=== PATIENT | male | born 1965 | race Caucasian/White ===

== ENCOUNTER → 2023-06-28 07:28 | Outpatient (REF) | payer OTHER, SELFPAY | LOC: EMG 07:28 | PROVIDERS: ATTENDING PHYSICIAN Psychiatry & Neurology Neurology; FAMILY PHYSICIAN Physician Assistant Medical | DX: R20.0 Anesthesia of skin (principal) | CPT/HCPCS: 95886; 95913 ==

== ENCOUNTER 2024-03-10 12:53 | Emergency (ER) | payer OTHER, SELFPAY ==
[2024-03-10 12:58] VITALS: BP 124/76
--- NOTE | 2024-03-10 14:32 | ED.GENMED ---
History of Present Illness
General
Chief Complaint: Back Pain
Time Seen by Provider: 03/10/24 14:30
History of Present Illness
History of Present Illness:
TIME OF INITIAL ENCOUNTER: 2:35 PM
HPI: The patient has has about 4 weeks of low back pain that starts in the left buttock region and radiates down the left lower extremity. He feels that he has sciatica. He was seen at an urgent care a few days ago and was placed on Robaxin. This
has not helped at all. He had a nerve ablation in the past and had epidural injections but never had any surgery. He has not had any fevers, he has no history of cancer, no history of IV drug abuse, no 'back pain red flags'. Due to the pain, he
has trouble walking and standing up. He has no bowel or bladder incontinence or tension.
EXAM:
GENERAL: Well appearing but in mild distress
HEENT: Moist oral mucosa
NEUROLOGIC: Excellent strength all extremities, no obvious coordination deficits, he has excellent strength in an L5 and S1 distribution to the left lower extremity, he has excellent sensation
BACK: Decreased active range of motion of the lumbar spine due to pain
PSYCHIATRIC: Appropriate mental status, normal insight and judgement
EXTREMITIES: Nontender, no edema, moves all extremities equally
SKIN: No rash, no lesions
NUMBER AND COMPLEXITY OF PROBLEMS ADDRESSED AT THE ENCOUNTER
� Chronic conditions affecting care: Low back pain
� Acute Exacerbation and/or Progression of Chronic Illness: This is an acute problem
� Differential Diagnosis includes: Sciatica, spinal stenosis, degenerative disease, history not consistent with concern for fracture
AMOUNT AND/OR COMPLEXITY OF DATA TO BE REVIEWED AND ANALYZED
� I performed an independent evaluation of and my interpretation is:
EKG:
CT:
X-rays:
Laboratory Studies:
Other:
� Review of other/old records: I reviewed records, the patient had management for hernia last year
� Clinical information was obtained by an independent historian: I spoke to the at bedside
� Prescriptions/Medications Considered but not given: Considered further NSAIDs however patient will be placed on steroids
� Further testing considered but not performed: Imaging not indicated at this time
RISK OF COMPLICATIONS AND/OR MORBIDITY OR MORTALITY OF PATIENT MANAGEMENT
� Social determinants of health affecting care: Lives at home
� Discussion with other providers:
� Escalation of care including admission/observation vs risk of discharge considered: The patient is known to Dr. Motta recommend that he follows up with him. Will place on steroids and he will stop the 'muscle relaxers'. He
has a nonfocal neurologic examination with no back pain red flags.
ANY OTHER UPDATES:
Past History
Past History
ED Past Medical History: GERD, HTN and Other
ED Past Surgical History: Other (Sinus surgery)
Social History
Tobacco: Non-smoker
Alcohol: None
Drug: None
Personal:
Living: with family
Employment: Employed
Family History
Family History: Other (reviewed and noncontributory)
Phy Exam
Physical Exam
Physical Exam:
See HPI
Course
Orders/Labs/Results
Orders:
Orders
03/10/24 14:41
Ketorolac [Toradol] 30 mg IM NOW STA
Oxycodone/Acetaminophen [Percocet 5/325] 2 tablet PO NOW STA
Prednisone [Deltasone] 50 mg PO NOW STA
Vital Signs
Initial and Last Documented VS:
Initial Vital Signs
Temp Pulse Resp BP Pulse Ox
98.3 F 74 18 124/76 99
03/10/24 12:58 03/10/24 12:58 03/10/24 12:58 03/10/24 12:58 03/10/24 12:58
Last Documented Vital Signs
Temp Pulse Resp BP Pulse Ox
98.3 F 74 18 124/76 99
03/10/24 12:58 03/10/24 12:58 03/10/24 12:58 03/10/24 12:58 03/10/24 12:58
*Critical Care Note
Total Time (30-74mins, 75-104mins- exclusive of procedures): Not Applicable
ED Attending Note
-
Portions of this chart may have been created with voice recognition software.� Occasional wrong word or��sound alike� substitutions may have occurred due to the inherent limitations of voice recognition software.
Discharge Plan
Departure
Patient Disposition: Home (Routine Discharge)
Date of Disposition: 03/10/24
Time of Disposition: 14:43
Patient with high blood pressure during this ER visit?: Yes
Discharge Problem:
Sciatica
Instructions: Sciatica (DC)
Prescriptions:
New
prednisone 50 mg tablet
50 mg PO DAILY Qty: 4 0RF
oxycodone-acetaminophen [Percocet] 5-325 mg tablet
1 - 2 tab PO Q8H PRN (Reason: Pain) Qty: 14 0RF
No Action
lansoprazole [Prevacid] 30 MG capsule,delayed release(DR/EC)
30 mg PO DAILY
loratadine 10 MG tablet
10 mg PO DAILY PRN (Reason: allergies)
metoprolol tartrate 25 MG tablet
25 mg PO BID
Immu Globulin,Gamma (IgG)
18 g SC WEEKLY
calcium carbonate 500 MG tablet
500 mg PO DAILY
ascorbic acid (vitamin C) 250 MG tablet
250 mg PO DAILY
zinc 10 MG tablet
1 tab PO DAILY
acetaminophen [Tylenol Extra Strength] 500 MG tablet
1,000 mg PO Q6HPRN PRN (Reason: pain)
Glucosamine Chondroitin 1 EACH capsule
2 ea PO DAILY
Cholecalciferol (Vitamin D3) [Vitamin D3] 50 MCG Capsule
50 mcg PO DAILY
duloxetine 30 MG capsule,delayed release(DR/EC)
90 mg PO DAILY
biotin 1 MG capsule
1 mg PO DAILY
multivitamin Tablet
1 tab PO DAILY
pregabalin [Lyrica] 100 mg Capsule
100 mg PO DAILY
fluticasone propionate [Flonase] 50 mcg/actuation Gates,Suspension
1 spray INTRANASAL DAILY
epinephrine [Epi E-Z Pen] 0.3 mg/0.3 mL Auto-Injector
DIRECTED
oxycodone 5 mg tablet
5 - 10 mg PO Q4HPRN PRN (Reason: moderate to severe pain) Qty: 20 0RF
Referrals:
Salty Lee, [Non-Admitting Privileges] - Next open appointment
Nimisha Reddy PA-C [Family Provider] -
Activity Restrictions/Additional Instructions:
We gave a one-time dose of Toradol which is an anti-inflammatory medicine. I have given you a prescription for a short course of a narcotic. If you take the narcotic, I recommend stopping the Robaxin and taking Colace to help prevent constipation.
Next dose of steroids tomorrow morning. Follow-up with Dr. Lee.
Interventions
Interventions:
*Risk Screen - Suicide Last Done: 03/10/24 12:58
*General Assessment Last Done: 03/10/24 12:58
*Neglect/Abuse Screening Last Done: 03/10/24 12:58
*ED COVID-19 Vaccine History Last Done: 03/10/24 13:17
ED-Musculoskeletal Assessment Last Done: 03/10/24 13:17
Discharge Date and Time
Print Language: SWISS
[2024-03-10] MEDS: PERCOCET 5/325 2 TABLET PO (14:50)
[2024-03-10] MEDS: DELTASONE 50 MG PO (14:51)
[2024-03-10] MEDS: TORADOL 30 MG IM (14:51)
[2024-03-10 15:06] VITALS: BP 146/87
== END 2024-03-10 15:08 | disposition home or self-care (01) ==
LOC: EMR 12:53
PROVIDERS: EMERGENCY PHYSICIAN Emergency Medicine; FAMILY PHYSICIAN Physician Assistant Medical
DX: M54.42 Lumbago with sciatica, left side (principal); I10 Essential (primary) hypertension
CPT/HCPCS: 99284; 96372